=== PATIENT | male | born 1960 | race Caucasian/White ===

== ENCOUNTER → 2022-04-12 | Outpatient (CLI) | payer OTHER ==
[~2022-04-12] MED LIST: FOLGARD TABLET1 EACH PO; PROTONIX40 MG PO; XARELTO10 MG PO
== END ==
LOC: KOH-I 12:57
DX: F17.210 Nicotine dependence, cigarettes, uncomplicated (principal); R91.1 Solitary pulmonary nodule
CPT/HCPCS: 71271